=== PATIENT | female | born 1960 | race Caucasian/White ===

== ENCOUNTER → 2017-05-19 | Outpatient (REF) ==
[~2017-05-19] MED LIST: TRAZ-156 PO; VENL150C61 PO
--- NOTE | 2017-05-19 16:24 | RADIOLOGY IMAGING REPORT ---
FACILITY: [facility] - [place] PATIENT NAME: LUIS ÁLVAREZ : [id number] MR: [id number] V: [id number] EXAM DATE: [id number] ORDERING PHYSICIAN: ARABELLA DAN TECHNOLOGIST: Latesha Meyer PROCEDURE:BILATERAL DIAGNOSTIC DIGITAL MAMMOGRAM WITH CAD ASSISTED INTERPRETATION & 3D TOMOSYNTHESIS COMPARISON:Prior mammograms are no longer available. INDICATIONS:6 month f/u, prior abnormal mammogram. FINDINGS: A small amount of fibroglandular tissue is seen throughout the breasts. There is a tiny well circumscribed nodular density in the upper outer quadrant of the Right breast in Zones 1 & 2. Right breast Ultrasound revealed no abnormality, therefore a 6 month follow-up Right mammogram is recommended unless clinical findings warrant more immediate attention. The remainder of the parenchymal pattern appears homogeneous. DIAGNOSTIC CATEGORY 3--PROBABLY BENIGN FINDING. RECOMMENDATIONS: SIX MONTH FOLLOW-UP DIAGNOSTIC MAMMOGRAM: RIGHT BREAST. IMPRESSION: BIRADS 3: Probably benign finding. A 6 month follow-up Right mammogram is recommended unless clinical findings warrant more immediate attention. Dictated by: Alexandra Magana M.D. on 05/19/2017 at 11:03 Transcribed by: KEVON on 05/19/2017 at 11:36 Approved by: Alexandra Magana M.D. on 05/19/2017 at 16:23 [facility]
--- NOTE | 2017-05-19 16:24 | RADIOLOGY IMAGING REPORT ---
FACILITY: [facility] - [place] PATIENT NAME: LUIS ÁLVAREZ : [id number] MR: [id number] V: [id number] EXAM DATE: [id number] ORDERING PHYSICIAN: ARABELLA DAN TECHNOLOGIST: Tristian Soler PROCEDURE:US RIGHT BREAST COMPARISON:None. INDICATIONS:Right breast mass upper outer quadrant. FINDINGS: The upper outer quadrant of the Right breast was imaged sonographically revealing no sonographic correlate for the small nodular density seen on today's mammogram therefore a 6 month follow-up Right mammogram is recommended. DIAGNOSTIC CATEGORY 3--PROBABLY BENIGN FINDING. RECOMMENDATIONS: SIX MONTH FOLLOW-UP DIAGNOSTIC MAMMOGRAM: RIGHT BREAST. IMPRESSION: BIRADS 3: Probably benign finding A 6 month follow-up Right mammogram is recommended. Dictated by: Alexandra Magana M.D. on 05/19/2017 at 14:19 Transcribed by: KEVON on 05/19/2017 at 14:52 Approved by: Alexandra Magana M.D. on 05/19/2017 at 16:23 [facility]
== END ==
LOC: MAMO 02:21
PROVIDERS: ATTEND Nurse Practitioner
DX: R92.2 Inconclusive mammogram (principal)
CPT/HCPCS: 77062; 77066

== ENCOUNTER → 2017-07-01 | Day surgery (SDC) | payer OTHER ==
[2017-07-01] VITALS (7 sets, daily range): BP systolic 96–122; BP diastolic 48–68
[~2017-07-01] VITALS: Ht 157.5 cm; Wt 56.2 kg
[~2017-07-01] MED LIST changes: +GOLYTE PO; +LIDOCAINE/SOD BICARB 8.4% SYR ID ONE; +NAPR220C12 PO; +NORMOSOL R SOLN(*) 1000 ML BAG 1,000 ML IV PRN; +PROPOFOL EMUL(*) 10MG/ML 20 ML 20 ML ONE
--- NOTE | 2017-07-01 09:28 | Short(Outpt) Discharge Summary ---
Discharge Summary Reason for Hosp/Final Diag: (1) Diarrhea Status: Chronic Hospital Course & Plan: Colonoscopy with biopsies completed without problems. Departure Discharge to: Home, Self Care Discharge Instructions Home Meds Active Scripts Peg/Electrolytes (GOLYTELY SOLUTION) 4,000 Ml Soln, 1 GAL PO ONCE, #1 GAL 0 Refills Prov:PENNY MILLER MD 06/22/17 Reported Medications Naproxen Sodium (ALEVE) 220 Mg Capsule, 30 MG PO BID, CAPSULE 06/26/17 Follow up Referrals: General Surgery - 07/20/17 @ Surgery, General with Penny Miller Md You have a follow up appointment scheduled with Dr. Miller on 07/20/17, at 10:30am. Diet: Regular Activity: As Tolerated Special Instructions: Your colonoscopy was completed without any problems and your prep was excellent (Good Job!!). I didn't find anything obviously abnormal in your colon, no inflammation, cancer, or polyps, but I took several biopsies throughout your colon to determine if there's a microscopic cause for your diarrhea. I will discuss these results with you when I see you in my office on Thursday, July 20, 2017, at 10:30am. Problem Qualifiers (1) Diarrhea: Diarrhea type: unspecified type Qualified Codes: R19.7 - Diarrhea, unspecified PENNY MILLER MD July 01, 2017 09:28
== END ==
LOC: OR 01:13
PROVIDERS: ATTEND Surgery
DX: K52.9 Noninfective gastroenteritis and colitis, unspecified (principal)
CPT/HCPCS: 00811; 45380; 88305; J2704

== ENCOUNTER → 2017-08-11 | Outpatient (REF) ==
[~2017-08-11] MED LIST changes: -LIDOCAINE/SOD BICARB 8.4% SYR ID ONE; -NORMOSOL R SOLN(*) 1000 ML BAG 1,000 ML IV PRN; -PROPOFOL EMUL(*) 10MG/ML 20 ML 20 ML ONE
--- NOTE | 2017-08-11 14:54 | RADIOLOGY IMAGING REPORT ---
FACILITY: [facility] - [place] PATIENT NAME: Praveena Samuels : 1960 MR: [id number] V: [id number] EXAM DATE: ORDERING PHYSICIAN: ARABELLA DAN TECHNOLOGIST: Location: [facility] Patient: Praveena Samuels : 1960 Visit/Account:[id number] Date of Sevice: 08/11/2017 Exam type: LUMBAR SPINE 4 VIEWS History: Low back pain x3 years Comparison: None. Findings: There are five nonrib-bearing lumbar-type vertebral bodies present. There is no evidence of acute fr actures in the lumbar spine. There is a 4 mm anterior listhesis of L4 with respect L5 which may be o n a degenerative basis. There is mild disc space narrowing also noted at this level. Moderate degen erative facet joint changes are noted bilaterally from L3 to S1. Mild to moderate spondylotic change s are seen in the visual as portion lower thoracic spine. IMPRESSION: 1. Spondylotic changes of the lumbar spine, most prominent at L3-S1 Moderate spondylotic changes in the visualized lower lumbar spine Report Dictated By: Alexandra Magana MD at 08/11/2017 2:49 PM Report E-Signed By: Alexandra Magana MD at 08/11/2017 2:51 PM WSN:HONORIO
== END ==
LOC: RAD 11:52
PROVIDERS: ATTEND Nurse Practitioner
DX: M47.896 Other spondylosis, lumbar region (principal)
CPT/HCPCS: 72120

== ENCOUNTER → 2017-08-17 | Outpatient (REF) ==
--- NOTE | 2017-08-17 10:46 | RADIOLOGY IMAGING REPORT ---
FACILITY: [facility] PATIENT NAME: Praveena Samuels : 1960 MR: [id number] V: [id number] EXAM DATE: ORDERING PHYSICIAN: ARABELLA DAN TECHNOLOGIST: Location: [facility] [place] Patient: Praveena Samuels : 1960 Visit/Account:[id number] Date of Sevice: 08/17/2017 DEXA Scan Clinical history: Osteopenia. Comparison: None available. LUMBAR SPINE: The bone mineral density (BMD) measured from L1-L4 correlates with a Z-score -0.2 and a T-score of -1 .4 which is osteopenia as defined by the World Health Organization. The corresponding risk of fractu re in the lumbar spine is 2-3 times increased compared with a young adult reference population. HIP: Bone mineral density (BMD) measured in the Left total hip region correlates with a Z-score -0.9 and a T-score of -1.8 which is osteopenia as defined by the World Health Organization. The corresponding risk of fracture in the hip is 3-4 times increased compared with a young adult reference population. T score left femoral neck -2.3 Bone mineral density (BMD) measured in the Femoral Neck region measures 0.724 g/cm2. Impression: 1. Lumbar spine: Osteopenia. 2. Left Hip: Osteopenia. 3. Femoral Neck: Bone Mineral Density is 0.724 g/cm2 The next DEXA scan of this patient should include the following sites: L1-L4 and the left hip. FRAX? WHO Fracture Risk Assessment Tool link: <http://www.shef.ac.uk/FRAX/tool.jsp?locationValue=9> PLEASE NOTE: 1) The World Health Organization defines low BMD as follows: T-score Normal > -1 Osteopenia < -1 and > -2.5 Osteoporosis < -2.5 without fractures Established osteoporosis < -2.5 with fractures 2) In general, you may wish to consider: Diagnosis Treatment Follow-up DEXA Normal BMD Prevention 2-3 years Osteopenia Prevention/therapy 1-2 years Osteoporosis Therapy Yearly 3) Fracture risk estimated from the T-score is more accurate for vertebral fractures (often spontane ous) than for hip fractures. Report Dictated By: Alexandra Magana MD at 08/17/2017 10:42 AM Report E-Signed By: Alexandra Magana MD at 08/17/2017 10:43 AM JOSSEN:HONORIO
== END ==
LOC: RAD 01:38
PROVIDERS: ATTEND Nurse Practitioner
DX: M85.89 Other specified disorders of bone density and structure, multiple sites (principal)
CPT/HCPCS: 77080

== ENCOUNTER → 2018-07-21 | Outpatient (REF) ==
[~2018-07-21] MED LIST changes: -TRAZ-156 PO; +TRAZ50TA52 PO
[2018-07-21 10:24] LABS: LDL CHOLESTEROL 60 mg/dl
== END ==
LOC: LAB 08:24
PROVIDERS: ATTEND Family Medicine
DX: Z02.9 Encounter for administrative examinations, unspecified (principal)
CPT/HCPCS: 36415; 80195; 82040; 82247; 82306; 82310; 82374; 82435; 82465; 82565; 82607; 82947; 83718; 84075; 84132; 84155; 84295; 84443; 84450; 84460; 84478; 84520; 85027; 85651; 86038; 86140; 86703; 86803

== ENCOUNTER → 2018-08-05 | Outpatient (CLI) | payer OTHER ==
--- NOTE | 2018-08-05 17:42 | RADIOLOGY IMAGING REPORT ---
FACILITY: [facility] - [place] PATIENT NAME: LUIS ÁLVAREZ : [id number] MR: [id number] V: [id number] EXAM DATE: ORDERING PHYSICIAN: MAXWELL SZYMANSKI TECHNOLOGIST: Mary Ann Ceballos PROCEDURE:BILATERAL DIAGNOSTIC DIGITAL MAMMOGRAM WITH CAD ASSISTED INTERPRETATION & 3D TOMOSYNTHESIS REASON FOR STUDY: Follow-up of what was supposed to be a 6 month diagnostic mammogram from the prior study of 05/19/2017. The patient did not return in 6 months so this is a basically a 1 year diagnostic follow-up of the Right breast and a screening mammogram of the Left breast. FAMILY HISTORY OF BREAST CANCER: Maternal grandmother. BREAST PROCEDURES/TREATMENTS: None. COMPARISON STUDIES: From 05/19/2017. VIEWS OBTAINED: 2D & 3D full field CC & MLO. BREAST DENSITY: There are scattered areas of fibroglandular density. MAMMOGRAM FINDINGS: There are no mass lesions, or architectural distortions, or any clustering's of suspicious microcalcifications. The very small 3mm well circumscribed nodular density in the Right breast is stable in size and appearance. It has a central lucency on tomosynthesis and likely represents an intramammary lymph node. DIAGNOSTIC CATEGORY 1--Negative RECOMMENDATIONS: ROUTINE MAMMOGRAM AND CLINICAL EVALUATION. IMPRESSION: BIRADS 2: Benign finding. Dictated by: Min Avila M.D. on 08/05/2018 at 14:32 Transcribed by: KEVON on 08/05/2018 at 14:48 Approved by: Min Avila M.D. on 08/05/2018 at 17:40 [facility]
== END ==
LOC: MAMO 00:46 → EDSTATUS 09:19
PROVIDERS: ATTEND Family Medicine
DX: R92.2 Inconclusive mammogram (principal); Z80.3 Family history of malignant neoplasm of breast
CPT/HCPCS: 77062; 77066